=== PATIENT | male | born 2000 | race Caucasian/White ===

== ENCOUNTER 2025-03-15 09:46 | Outpatient (CLI) | payer BC ==
[2025-03-15 10:40] LABS: Hematocrit 47.1 % (41.0-53.0); Hemoglobin 16.3 g/dL (13.5-17.5); Mean Corpuscular Hemoglobin 29.0 pg (28.0-32.0); Mean Corpuscular Volume 83.8 fL (80.0-100.0); Nucleated Red Blood Cells % 0.2 %
[2025-03-15 11:07] LABS: Urine Protein, UAD Negative (Negative)
[2025-03-15 12:06] LABS: Alanine Aminotransferase 40 U/L (7-40); Albumin 4.7 g/dL (3.2-4.8); Alkaline Phosphatase 78 U/L (46-116); Anion Gap 11 (5-15); BUN/Creatinine Ratio 13.5 (10.0-20.0); Blood Urea Nitrogen 12 mg/dL (9-23); Calcium 9.8 mg/dL (8.7-10.4); Carbon Dioxide 25 mmol/L (20-31); Chloride 105 mmol/L (98-107); Glucose 101 mg/dL (74-106); Potassium 4.0 mmol/L (3.5-5.1); Sodium 141 mmol/L (136-145); Total Protein 7.4 g/dL (5.7-8.2)
[2025-03-15 12:07] LABS: Bilirubin, Total 0.5 mg/dL (0.2-1.0)
[2025-03-15 14:16] LABS: Triglycerides 114 mg/dL (< 150)
[2025-03-15 14:18] LABS: Bilirubin, Direct 0.1 mg/dL (<0.3); HDL Cholesterol 52 mg/dL (40-59)
[2025-03-15 14:24] LABS: Cholesterol 230 mg/dL (< 200)
== END 2025-03-15 17:00 | disposition home or self-care (01) ==
LOC: LAB 09:46
PROVIDERS: ATTEND Internal Medicine Cardiovascular Disease
DX: M35.9 Systemic involvement of connective tissue, unspecified (principal); Z00.00 Encounter for general adult medical examination without abnormal findings
CPT/HCPCS: 36415; 80048; 80061; 80076; 81003; 83036; 84443; 85025; 85652; 86141

== ENCOUNTER 2025-04-11 08:57 | Outpatient (CLI) | payer BC ==
--- NOTE | 2025-04-11 14:42 | DVHSR ---
APPROVED REPORT EXAM: Two-dimensional and M-mode echocardiogram with Doppler and color Doppler. DIMENSIONS LVDd4.3 (3.8-5.7cm)LA (2D)3.6 (1.9-4.0cm)Aortic Root2.9 (2.0-3.7cm) LVDs2.6 (2.5-4.0cm)LA (MM) (1.9-4.0cm)Aortic Cusp Exc1.8 (1.5-2.0cm) EF (%) 65.0 (55-70%)Rt. Atrium3.1 (1.9-4.0cm)Asc. Aorta2.7 cm IVSd0.9 (0.7-1.1cm)RV (D)1.9 (1.8-2.4cm) PWd0.8 (0.7-1.1cm) Mitral Valve MitralMitral Stenosis E wave1.01m/sMV Mean GR.mmHg A wave0.53m/sMV Peak GR.mmHg E/A ratio1.92D MVAcm2 DECEL [id number] 1/2 Tim[place] Aortic Valve Aortic ValveAortic Stenosis V11.16m/Jolynn Mean GR.5mmHg V21.45m/Jolynn Peak GR.8mmHg LVOT Diameter1.9 (1.8-2.4cm)Doppler AVA2.27cm2 LEFT VENTRICLE The left ventricle is normal size. The left ventricle is normal in structure and function. The Ejection Fraction is 60-65%. RIGHT VENTRICLE The right ventricle is normal size. ATRIA The left atrial size is normal. The right atrium size is normal. MITRAL VALVE The mitral valve is normal in structure and function. There is no mitral valve regurgitation noted. PULMONIC VALVE The pulmonic valve is not well visualized. There is trace pulmonic valvular regurgitation. TRICUSPID VALVE The tricuspid valve is grossly normal. There is trace tricuspid regurgitation. AORTIC VALVE The aortic valve opens well. No aortic regurgitation is present. GREAT VESSELS The aortic root is normal size. PERICARDIAL EFFUSION There is no pericardial effusion. Conclusion EF >55%
== END 2025-04-11 17:00 | disposition home or self-care (01) ==
LOC: Rad HDHVI 08:57
PROVIDERS: ATTEND Internal Medicine Cardiovascular Disease
DX: I08.0 Rheumatic disorders of both mitral and aortic valves (principal); R07.89 Other chest pain
CPT/HCPCS: 93306

== ENCOUNTER 2025-04-19 09:00 | Outpatient (CLI) | payer BC ==
[~2025-04-19] VITALS: Ht 182.9 cm; Wt 81.6 kg
== END 2025-04-19 17:00 | disposition home or self-care (01) ==
LOC: Rad HDHVI 09:00
PROVIDERS: ATTEND Internal Medicine Cardiovascular Disease
DX: I10 Essential (primary) hypertension (principal); R07.89 Other chest pain
CPT/HCPCS: 93017